=== PATIENT | female | born 1995 | race Caucasian/White ===

== ENCOUNTER 2022-02-15 17:47 | Emergency (ER) | payer OTHER ==
[~2022-02-15 17:47] MED LIST: ANAPROX DS550 MG PO; BACTRIM DS TAB1 EACH PO; KEFLEX500 MG PO; NORCO 5-325 TA1 EACH PO; ROBAXIN750 MG PO
[2022-02-15 20:43] LABS: BILIRUBIN NEGATIVE (NEGATIVE); BLOOD 1+ Ery/uL (NEGATIVE); CLARITY CLEAR (CLEAR); COLOR YELLOW (YELLOW); GLUCOSE (U) NORMAL (NORMAL); LEUKOCYTES NEGATIVE Leu/uL (NEGATIVE); NITRITE NEGATIVE (NEGATIVE); PROTEIN NEGATIVE (NEGATIVE); SPECIFIC GRAVITY 1.015 (1.001-1.030)
[2022-02-15 20:59] LABS: BACTERIA TRACE; SQUAMOUS EPITHELIAL CELLS RARE; URINARY WBC RARE
[2022-02-15 22:24] LABS: BASOPHIL 0.4 % (0-2); EOSINOPHIL 4.8 % (0-5); HGB 14.4 g/dl (12.5-16.0); LYMPHOCYTE 27.4 % (15-48); MCH 30.4 pg (25.0-31.0); MCHC 33.5 g/dL (32.0-36.0); MCV 90.7 fL (78.0-100.0); MONOCYTE 18.4 % (0-12); MPV 10.3 fL (6.0-9.5); NEUTROPHIL 48.8 % (41-80); NRBC 0; PLT 195 K/uL (150-400); RBC 4.74 M/uL (4.20-5.40); RDW 12.2 % (11.5-14.0); WBC 4.6 K/uL (4.0-10.5)
[2022-02-15 22:41] LABS: ALBUMIN 4.2 g/dL (3.4-5.0); BILIRUBIN - TOTAL 0.8 mg/dL (0.2-1.0); BUN/CREAT RATIO (CALC) 13.4 RATIO; CREATININE 0.82 mg/dL (0.51-0.95); GLOBULIN (CALCULATION) 3.3 g/dL; POTASSIUM 3.7 mmol/L (3.5-5.1); TOTAL PROTEIN 7.5 g/dL (6.4-8.2)
[2022-02-16] MEDS ORDERED: ONDANSETRON HCL4 MG PO (00:04)
[2022-02-16] MEDS ORDERED: BENTYL10 MG PO (00:04)
== END 2022-02-16 00:15 | disposition home or self-care (01) ==
LOC: FER 17:47
PROVIDERS: Emergency Medicine; Nurse Practitioner Family
DX: R10.12 Left upper quadrant pain (principal); R31.9 Hematuria, unspecified; R11.0 Nausea; F17.210 Nicotine dependence, cigarettes, uncomplicated; Z28.310 Unvaccinated for COVID-19
CPT/HCPCS: 36415; 80053; 81001; 85025; J1885; J2405; J7030; Q9967